=== PATIENT | male | born 1960 | race Asian ===

== ENCOUNTER 2019-05-05 14:18 | Observation (INO) | payer OTHER ==
[~2019-05-05] VITALS: Ht 167.6 cm; Wt 61.5 kg
--- NOTE | 2019-05-05 14:24 | NUR ---
TASK RN NOTE: HEADACHE AND DIZZINESS SINCE LAST NIGHT, NEURO INTACT, NO FOCAL DEFICITS NOTED. PT SEEN AT [facility] ED, PT LEFT BEFORE WORKUP COMPLETE HIS BOSS INFORMED HIM THAT HIS INSURANCE IS NOT ACCEPTED AT [facility]. ALL MONITORS APPLIED, EKG TAKEN. REPORT GIVEN TO PRIMARY RN CAYDEN.
--- NOTE | 2019-05-05 14:37 | NUR ---
AGREE WITH TRIAGE AND NOTE BY YAJAIRA RADFORD. PT R/O ROOM SPINNING THIS AM, KAPLAN AND DIZZINESS WORSENING WHEN STANDING. SLIGHT NAUSEA THIS AM, NONE NOW. PT RATES KAPLAN PAIN AT 4/10 CURRENTLY AND NO DIZZINESS OR WEAKNESS WHILE LYING STILL. ORTHOSTATICS DONE, RECORDED ON CHART. CALL LIGHT WITHIN REACH, FAMILY AT BS.
[2019-05-05] MEDS ORDERED: SODIUM CHLORIDE FLUSH 10ML SYR IVF ONE (15:00)
[2019-05-05 15:01] LABS: BASOPHILS # (AUTO) 0.03 x10^3/uL (0-0.1); BASOPHILS % (AUTO) 0 % (0-1); EOSINOPHILS # (AUTO) 0.34 x10^3/uL (0-0.4); EOSINOPHILS % (AUTO) 3 % (1-7); LYMPHOCYTES # (AUTO) 1.61 x10^3/uL (1-3.4); LYMPHOCYTES % (AUTO) 15 % (22-44); MD NO; MEAN CORPUSCULAR HEMOGLOBIN 19.4 pg (27.5-34.5); MEAN CORPUSCULAR VOLUME 62.5 fL (81-97); MEAN PLATELET VOLUME 7.7 fL (7.4-10.4); MONOCYTES # (AUTO) 0.39 x10^3/uL (0.2-0.8); MONOCYTES % (AUTO) 4 % (2-9); NEUTROPHILS # (AUTO) 8.52 x10^3/uL (1.8-6.8); NEUTROPHILS % (AUTO) 78 % (42-75); PLATELET COUNT 328 x10^3/uL (130-400); RED BLOOD COUNT 6.59 x10^6/uL (4.38-5.82); RED CELL DISTRIBUTION WIDTH 15.7 % (9.4-14.8)
[2019-05-05 15:07] LABS: ALBUMIN 3.9 g/dL (3.4-5.0); ANION GAP 9 mmol/L (5-15); CALCIUM 9.2 mg/dL (8.5-10.1); CHLORIDE 105 mmol/L (98-107); CREATININE 0.69 mg/dL (0.7-1.3)
[2019-05-05 15:11] LABS: TROPONIN I < 0.015 ng/mL (0.000-0.045)
--- NOTE | 2019-05-05 15:11 | NUR ---
URINE COLLECTED/SENT TO LAB.
[2019-05-05 15:21] LABS: MICROSCOPIC AUTO
[2019-05-05 15:22] LABS: INTERNATIONAL NORMALIZED RATIO 0.93 (0.93-1.1); PROTHROMBIN TIME 9.8 Seconds (9.6-11.5)
[2019-05-05 15:33] LABS: CULTURE INDICATED? NO
[2019-05-05] MEDS ORDERED: SODIUM CHLORIDE FLUSH 10ML SYR IVF PRN (17:00)
[2019-05-05] MEDS ORDERED: ATEN25TA PO (17:07)
--- NOTE | 2019-05-05 17:17 | NUR ---
REPORT TO DAVE ALEMAN READY FOR TRANSPORT.
[2019-05-05] MEDS ORDERED: hydrALAzine 20 MG/ML, 1ML IVPush PRN (17:30)
[2019-05-05] MEDS ORDERED: PROMETHAZINE 25 MG/ML, 1ML IM PRN (17:30)
[2019-05-05] MEDS ORDERED: ACETAMINOPHEN 325 MG TABLET PO PRN (17:30)
[2019-05-05] MEDS ORDERED: LABETALOL 5MG/ML, 20ML IVPush PRN (17:30)
[2019-05-05] MEDS ORDERED: ONDANSETRON 2MG/ML, 2ML IVPush PRN (17:30)
--- NOTE | 2019-05-05 18:12 | NUR ---
TASK RN: REPORT TO MALINA COBB. PT RESTING IN [facility], NAD NOTED. PT REPORTS "FEELING SLEEPY", DENIES PAIN/NAUSEA. AT BEDSIDE.
[2019-05-05 19:15] VITALS: BP 154/106
[2019-05-05] MEDS: ENOXAPARIN 40 MG/0.4 ML SQ SCH (20:02)
[2019-05-05] MEDS: SODIUM CHLORIDE 0.9% 1,000 ML IV SCH (20:02)
[2019-05-05 20:08] VITALS: BP 158/99
[2019-05-05] MEDS: MECLIZINE CHEWABLE 25 MG TAB PO SCH (21:22)
[2019-05-06] VITALS (7 sets, daily range): BP systolic 122–148; BP diastolic 83–91
[2019-05-06 06:08] LABS: MEAN CORPUSCULAR HEMOGLOBIN 19.4 pg (27.5-34.5); MEAN CORPUSCULAR HGB CONC 30.7 g/dL (33.2-36.2); MEAN CORPUSCULAR VOLUME 63.2 fL (81-97); PLATELET COUNT 272 x10^3/uL (130-400); RED BLOOD COUNT 6.07 x10^6/uL (4.38-5.82); RED CELL DISTRIBUTION WIDTH 15.9 % (9.4-14.8)
[2019-05-06 06:15] LABS: CHLORIDE 107 mmol/L (98-107)
[2019-05-06 06:25] LABS: ALANINE AMINOTRANSFERASE 43 U/L (12-78); ALBUMIN 3.3 g/dL (3.4-5.0); ALKALINE PHOSPHATASE 52 U/L (45-117); ANION GAP 7 mmol/L (5-15); BILIRUBIN,TOTAL 0.5 mg/dL (0.2-1.0); CALCIUM 8.1 mg/dL (8.5-10.1); CREATININE 0.82 mg/dL (0.7-1.3); TOTAL PROTEIN 7.3 g/dL (6.4-8.2)
[2019-05-06 06:36] LABS: BASOPHILS # (AUTO) 0.04 x10^3/uL (0-0.1); BASOPHILS % (AUTO) 1 % (0-1); EOSINOPHILS # (AUTO) 0.61 x10^3/uL (0-0.4); EOSINOPHILS % (AUTO) 7 % (1-7); LYMPHOCYTES # (AUTO) 2.13 x10^3/uL (1-3.4); LYMPHOCYTES % (AUTO) 24 % (22-44); MD SCAN; MONOCYTES # (AUTO) 0.42 x10^3/uL (0.2-0.8); MONOCYTES % (AUTO) 5 % (2-9); NEUTROPHILS # (AUTO) 5.64 x10^3/uL (1.8-6.8); NEUTROPHILS % (AUTO) 64 % (42-75)
[2019-05-06] MEDS: ATENOLOL 25 MG TABLET PO SCH (09:53)
[2019-05-06] MEDS: MECLIZINE CHEWABLE 25 MG TAB PO SCH ×2 (09:53→20:59)
[2019-05-06] MEDS: SODIUM CHLORIDE 0.9% 1,000 ML IV SCH (15:11)
[2019-05-06] MEDS: ENOXAPARIN 40 MG/0.4 ML SQ SCH (17:30)
[2019-05-07] MEDS: SODIUM CHLORIDE 0.9% 1,000 ML IV SCH (00:24)
[2019-05-07 01:33] VITALS: BP 154/97
[2019-05-07 06:48] VITALS: BP 169/98
[2019-05-07] MEDS: ATENOLOL 25 MG TABLET PO SCH (08:19)
[2019-05-07] MEDS: MECLIZINE CHEWABLE 25 MG TAB PO SCH (08:19)
[2019-05-07] MEDS ORDERED: MECL-85 PO (08:30)
[2019-05-07] MEDS ORDERED: MECL25TA4 PO (09:10)
== END 2019-05-07 09:45 | disposition home or self-care (01) ==
LOC: ED 15:41 → EDIP 16:58 → INTOOBSV 16:58 → 3N 18:33 → DCLOUNGE 05-07 09:32
PROVIDERS: ADMIT Emergency Medicine; ATTEND Emergency Medicine
DX: R42 Dizziness and giddiness (principal); D72.829 Elevated white blood cell count, unspecified; I10 Essential (primary) hypertension; R51 Headache; D50.9 Iron deficiency anemia, unspecified; Z79.899 Other long term (current) drug therapy
CPT/HCPCS: 36415; 70450; 80048; 80053; 81001; 82040; 82728; 83540; 83550; 84484; 85025; 85379; 85610; 85651; 85730; 86140; 93005; 96360; 96361; 96372; 97162; 99284; G0378; J1650; J7030